=== PATIENT | male | born 1960 | race Caucasian/White ===

== ENCOUNTER → 2023-12-04 08:33 | Outpatient (BNVA) | payer BC, SELFPAY | PROVIDERS: PCP Nurse Practitioner Family; Visit Provider Nurse Practitioner Family | DX: Z13.6 Encounter for screening for cardiovascular disorders (principal); Z12.5 Encounter for screening for malignant neoplasm of prostate; Z79.899 Other long term (current) drug therapy; E78.2 Mixed hyperlipidemia | CPT/HCPCS: 80053; 80061; 81003; 83036; 84443; 85025; G0103 ==

== ENCOUNTER → 2024-05-21 10:20 | Outpatient (BNVA) | payer BC, SELFPAY | PROVIDERS: PCP Family Medicine; Visit Provider Family Medicine | DX: Z13.6 Encounter for screening for cardiovascular disorders (principal); E78.2 Mixed hyperlipidemia | CPT/HCPCS: 80053; 80061 ==